=== PATIENT | female | born 1935 | race Two or more races ===

== ENCOUNTER 2018-07-20 14:39 | Inpatient (IN) | payer MEDICARE ==
--- NOTE | 2018-07-20 15:16 | ED ---
General Adult HPI - General Chief complaint: Shortness of Breath Stated complaint: low oxygen Time Seen by Provider: 07/20/18 14:59 Source: patient, family, RN notes reviewed Mode of arrival: ambulatory Limitations: no limitations - History of Present Illness Initial comments: Patient is a pleasant 83-year-old female presenting to the emergency department with dyspnea. Patient was at Dr. Valdovinos's office and oxygen was noticed to be low there. Patient states she did admit to having some difficulty in breathing. Patient states she has felt somewhat short of breath since starting treatment for bone cancer one year ago. Patient states it is been slightly worse over the past couple of weeks. Dyspnea does worsen with talking and sometimes after exertion. No cough. No fever. No chest pain. No history of previous lung problems or similar symptoms. No leg pain or leg swelling. - Related Data Home Medications Medication Instructions Recorded Confirmed Carvedilol [Coreg] 12.5 mg PO BID 11/10/17 07/20/18 Hydroxychloroquine Sulfate 200 mg PO DAILY 11/10/17 07/20/18 [Plaquenil] Lisinopril [Zestril] 20 mg PO BID 11/10/17 07/20/18 Bimatoprost [Lumigan .01% Ophth 1 drop BOTH EYES BID 07/20/18 07/20/18 Soln] Colesevelam [Welchol] 1,875 mg PO BID 07/20/18 07/20/18 Dronabinol [Marinol] 2.5 mg PO BID 07/20/18 07/20/18 Epoetin Luis [Procrit] 40,000 unit PO Q14D 07/20/18 07/20/18 Leflunomide [Arava] 20 mg PO DAILY 07/20/18 07/20/18 Prochlorperazine [Compazine] 10 mg PO TID PRN 07/20/18 07/20/18 fentaNYL 12MCG/HR PATCH [Duragesic 1 patch TRANSDERM Q72H 07/20/18 07/20/18 12MCG/HR] traMADol HCL/ACETAMINOPHEN 1 tab PO Q6H PRN 07/20/18 07/20/18 [Ultracet 37.5-325] Allergies Allergy/AdvReac Type Severity Reaction Status Date / Time clonidine Allergy Unknown Unknown Verified 07/20/18 15:22 cephalexin [From Keflex] Allergy Unknown Verified 07/20/18 15:22 Penicillins Allergy Unknown Verified 07/20/18 15:22 Review of Systems ROS Statement: Those systems with pertinent positive or pertinent negative responses have been documented in the HPI. ROS Other: All systems not noted in ROS Statement are negative. Constitutional: Denies: fever Eyes: Denies: eye pain ENT: Denies: ear pain Respiratory: Reports: dyspnea. Denies: cough Cardiovascular: Denies: chest pain Endocrine: Denies: fatigue Gastrointestinal: Denies: abdominal pain Genitourinary: Denies: dysuria Musculoskeletal: Denies: back pain Skin: Denies: rash Neurological: Denies: weakness Past Medical History Past Medical History: Cancer, Hypertension, Rheumatoid Arthritis (RA) Additional Past Medical History / Comment(s): Moderate kidney failure. Breast cancer - 2010. Bone metastasis History of Any Multi-Drug Resistant Organisms: None Reported Past Surgical History: Tonsillectomy Additional Past Surgical History / Comment(s): Bilateral TKR. Bilateral Hip replacements. Left breast mastectomy. Bilateral cataract extraction with IOL Past Psychological History: No Psychological Hx Reported Smoking Status: Never smoker Past Alcohol Use History: None Reported Past Drug Use History: None Reported General Exam Limitations: no limitations General appearance: alert, in no apparent distress Head exam: Present: atraumatic Eye exam: Present: normal appearance, PERRL ENT exam: Present: normal oropharynx Neck exam: Present: normal inspection Respiratory exam: Present: normal lung sounds bilaterally Cardiovascular Exam: Present: regular rate, normal rhythm GI/Abdominal exam: Present: soft. Absent: tenderness Back exam: Present: other (Kyphotic). Absent: tenderness Neurological exam: Present: alert Psychiatric exam: Present: normal affect, normal mood Skin exam: Present: normal color Course Vital Signs 07/20/18 07/20/18 07/20/18 14:42 15:02 16:13 Temperature 98.4 F Pulse Rate 71 72 Respiratory 18 20 16 Rate Blood Pressure 146/68 170/77 O2 Sat by Pulse 92 L 97 Oximetry - Reevaluation(s) Reevaluation #1: 07/20/18 17:29 Patient will be covered with antibiotics for possible infiltrate. Patient does not meet sepsis criteria. EKG Findings - EKG Comments: EKG Findings:: Normal sinus rhythm 69. IN 204. First 3 AV block. QRS 90. QT 418. QTC 447. Left axis. LVH criteria. Inferior Q waves. Q wave in lead V1. No acute ST change. Medical Decision Making - Medical Decision Making Patient reevaluated and updated. Case discussed in detail with Dr. Saez who does recommend medical admission and he will consult. He does recommend VQ scan and antibiotics and one unit of packed red blood cells. Case also discussed with Dr. qureshi, who will admit. - Lab Data Result diagrams: 07/20/18 15:50 07/20/18 15:50 Lab Results 07/20/18 07/20/18 07/20/18 Range/Units 15:50 15:50 15:50 WBC 4.0 (3.8-10.6) k/uL RBC 2.28 L (3.80-5.40) m/uL Hgb 6.7 L* (11.4-16.0) gm/dL Hct 22.7 L (34.0-46.0) % MCV 99.2 (80.0-100.0) fL MCH 29.4 (25.0-35.0) pg MCHC 29.7 L (31.0-37.0) g/dL RDW 18.2 H (11.5-15.5) % Plt Count 148 L (150-450) k/uL Neutrophils % 70 % Lymphocytes % 13 % Monocytes % 11 % Eosinophils % 4 % Basophils % 1 % Neutrophils # 2.8 (1.3-7.7) k/uL Lymphocytes # 0.5 L (1.0-4.8) k/uL Monocytes # 0.4 (0-1.0) k/uL Eosinophils # 0.1 (0-0.7) k/uL Basophils # 0.0 (0-0.2) k/uL Manual Slide Review Performed Polychromasia Present Hypochromasia Marked Poikilocytosis (manual Present Anisocytosis Slight Macrocytosis Slight PT (9.0-12.0) sec INR (<1.2) APTT (22.0-30.0) sec D-Dimer (<0.60) mg/L FEU Sodium 144 (137-145) mmol/L Potassium 4.8 (3.5-5.1) mmol/L Chloride 111 H (98-107) mmol/L Carbon Dioxide 23 (22-30) mmol/L Anion Gap 10 mmol/L BUN 39 H (7-17) mg/dL Creatinine 1.56 H (0.52-1.04) mg/dL Est GFR (CKD-EPI)AfAm 36 (>60 ml/min/1.73 sqM) Est GFR (CKD-EPI)NonAf 31 (>60 ml/min/1.73 sqM) Glucose 76 (74-99) mg/dL Calcium 9.3 (8.4-10.2) mg/dL Total Bilirubin 0.4 (0.2-1.3) mg/dL AST 25 (14-36) U/L ALT 14 (9-52) U/L Alkaline Phosphatase 47 (38-126) U/L Total Creatine Kinase 120 (30-135) U/L CK-MB (CK-2) 2.3 (0.0-2.4) ng/mL CK-MB (CK-2) Rel Index 1.9 Troponin I 0.019 (0.000-0.034) ng/mL NT-Pro-B Natriuret Pep pg/mL Total Protein 6.3 (6.3-8.2) g/dL Albumin 3.8 (3.5-5.0) g/dL Stool Occult Blood (Negative) 07/20/18 07/20/18 07/20/18 Range/Units 15:50 15:50 16:39 WBC (3.8-10.6) k/uL RBC (3.80-5.40) m/uL Hgb (11.4-16.0) gm/dL Hct (34.0-46.0) % MCV (80.0-100.0) fL MCH (25.0-35.0) pg MCHC (31.0-37.0) g/dL RDW (11.5-15.5) % Plt Count (150-450) k/uL Neutrophils % % Lymphocytes % % Monocytes % % Eosinophils % % Basophils % % Neutrophils # (1.3-7.7) k/uL Lymphocytes # (1.0-4.8) k/uL Monocytes # (0-1.0) k/uL Eosinophils # (0-0.7) k/uL Basophils # (0-0.2) k/uL Manual Slide Review Polychromasia Hypochromasia Poikilocytosis (manual Anisocytosis Macrocytosis PT 10.6 (9.0-12.0) sec INR 1.1 (<1.2) APTT 19.8 L (22.0-30.0) sec D-Dimer 3.01 H (<0.60) mg/L FEU Sodium (137-145) mmol/L Potassium (3.5-5.1) mmol/L Chloride (98-107) mmol/L Carbon Dioxide (22-30) mmol/L Anion Gap mmol/L BUN (7-17) mg/dL Creatinine (0.52-1.04) mg/dL Est GFR (CKD-EPI)AfAm (>60 ml/min/1.73 sqM) Est GFR (CKD-EPI)NonAf (>60 ml/min/1.73 sqM) Glucose (74-99) mg/dL Calcium (8.4-10.2) mg/dL Total Bilirubin (0.2-1.3) mg/dL AST (14-36) U/L ALT (9-52) U/L Alkaline Phosphatase (38-126) U/L Total Creatine Kinase (30-135) U/L CK-MB (CK-2) (0.0-2.4) ng/mL CK-MB (CK-2) Rel Index Troponin I (0.000-0.034) ng/mL NT-Pro-B Natriuret Pep 7330 pg/mL Total Protein (6.3-8.2) g/dL Albumin (3.5-5.0) g/dL Stool Occult Blood Negative (Negative) - Radiology Data Radiology results: image reviewed (Chest x-ray questions underlying metastatic disease. Possible left lower lobe atelectasis versus infiltrate.) Disposition Clinical Impression: Dyspnea, Anemia Disposition: ADMITTED IP TO THIS HOSP Is patient prescribed a controlled substance at d/c from ED?: No Referrals: Ange Messer MD [Primary Care Provider] - 1-2 days Decision Time: 17:29
[2018-07-20 16:16] LABS: Albumin 3.8 g/dL (3.5-5.0); Calcium 9.3 mg/dL (8.4-10.2); Potassium 4.8 mmol/L (3.5-5.1); Total Bilirubin 0.4 mg/dL (0.2-1.3); Total Protein 6.3 g/dL (6.3-8.2)
[2018-07-20 16:18] LABS: Anisocytosis Slight; Basophils % (A) 1 %; Eosinophils # (A) 0.1 k/uL (0-0.7); Eosinophils % (A) 4 %; HCT 22.7 % (34.0-46.0); Hypochromasia Marked; Lymphocytes # (A) 0.5 k/uL (1.0-4.8); Lymphocytes % (A) 13 %; MCH 29.4 pg (25.0-35.0); MCHC 29.7 g/dL (31.0-37.0); MCV 99.2 fL (80.0-100.0); Macrocytosis Slight; Mean Platelet Volume 7.5; Monocytes # (A) 0.4 k/uL (0-1.0); Monocytes % (A) 11 %; Neutrophils # (A) 2.8 k/uL (1.3-7.7); Neutrophils % (A) 70 %; Platelet Count 148 k/uL (150-450); RBC 2.28 m/uL (3.80-5.40); RDW 18.2 % (11.5-15.5)
[2018-07-20 16:21] LABS: HGB 6.7 gm/dL (11.4-16.0)
[2018-07-20 16:26] LABS: INR 1.1 (<1.2); Prothrombin Time 10.6 sec (9.0-12.0)
--- NOTE | 2018-07-20 16:28 | XR ---
EXAMINATION TYPE: XR chest 2V DATE OF EXAM: 07/20/2018 COMPARISON: NONE HISTORY: Difficulty breathing, shortness of breath TECHNIQUE: Frontal and lateral views of the chest are obtained. FINDINGS: There is a kyphosis, increased AP diameter of the chest. Sclerotic foci are present within the proximal humerus, ribs. Arthropathy noted within the shoulders. Heart size may be accentuated by rotation. There is retrocardiac density with obscured left hemidiaphragm, blunting of the left costo phrenic angle. No pneumothorax. Compression deformity noted at the mid thoracic spine with anterior w edging. Bone mineralization somewhat reduced. Fifth rib fracture on the left shows callus formation, minimally displaced posterior left fourth rib fracture also shows callus formation. Suspect some lowe r rib fractures on the right laterally. IMPRESSION: Possible underlying metastatic disease. Rotation may accentuate the heart size. There ma y be left lower lobe atelectasis versus pneumonia and associated effusion, follow-up to resolution to exclude underlying mass.
[2018-07-20 16:33] LABS: Partial Thromboplastin Time 19.8 sec (22.0-30.0)
[2018-07-20 16:34] LABS: D-Dimer 3.01 mg/L FEU (<0.60)
[2018-07-20 16:40] LABS: Creatine Kinase MB 2.3 ng/mL (0.0-2.4); Troponin I 0.019 ng/mL (0.000-0.034)
[2018-07-20 16:53] LABS: Poikilocytosis (M) Present; Polychromasia Present
[2018-07-20] MEDS ORDERED: IPRATROPIUM-ALBUTEROL 3 ML NEB INHALATION PRN (17:30)
[2018-07-20] MEDS ORDERED: PNEUMONIA PROTOCOL UTILIZED 1 EACH MISC PO PRN (17:30)
[2018-07-20] MEDS ORDERED: LEVOFLOXACIN 750MG-D5W PMX 750 MG in DEXTROSE/WATER 1 150ML.BAG IVPB STA (17:30)
[2018-07-20] MEDS: SODIUM CHLORIDE 0.9% 1,000 ML IV SCH (18:03)
[2018-07-20] MEDS ORDERED: NALOXONE 0.4 MG/ML 1 ML VIAL IV PRN (18:46)
--- NOTE | 2018-07-20 18:46 | P.HPIM ---
History of Present Illness H&P Date: 07/20/18 Chief Complaint: Shortness of breath The patient is an 83 yo F with PMH of stage 4 breast ca (dx 8 years ago as stage 3 with subsequent recurrence 1 year ago), currently on Ibrans (palbociclib ) and Xgeva (denosumab), HTN, RA, and CKD 3, presented to the ED from Dr Valdovinos 's (Oncologist) office for SOB and hypoxia. The patient notes that she has been developing gradually worsening SOB on-going since starting the breast cancer therapy in 10/2017 but recently worsening over past few weeks. She notes that her ET has decreased somewhat though she continues to ambulate with walker. She otherwise denied chest pain, LE pain, worsening LE edema (baseline edema chronically of LEs), recent travel, cough, fever, chills, or prolonged immobilization. She further denied melena, hematochezia, headache, blurred vision, dysuria. Review of Systems Pertinent positives and negatives as discussed in HPI, a complete review of systems was performed and all other systems are negative. Past Medical History Past Medical History: Cancer, Hypertension, Rheumatoid Arthritis (RA) Additional Past Medical History / Comment(s): Moderate kidney failure. Breast cancer - 2010. Bone metastasis History of Any Multi-Drug Resistant Organisms: None Reported Past Surgical History: Tonsillectomy Additional Past Surgical History / Comment(s): Bilateral TKR. Bilateral Hip replacements. Left breast mastectomy. Bilateral cataract extraction with IOL Past Psychological History: No Psychological Hx Reported Smoking Status: Never smoker Past Alcohol Use History: None Reported Past Drug Use History: None Reported Medications and Allergies Home Medications Medication Instructions Recorded Confirmed Type Carvedilol [Coreg] 12.5 mg PO BID 11/10/17 07/20/18 History Hydroxychloroquine Sulfate 200 mg PO DAILY 11/10/17 07/20/18 History [Plaquenil] Lisinopril [Zestril] 20 mg PO BID 11/10/17 07/20/18 History Bimatoprost [Lumigan .01% Ophth 1 drop BOTH EYES BID 07/20/18 07/20/18 History Soln] Colesevelam [Welchol] 1,875 mg PO BID 07/20/18 07/20/18 History Dronabinol [Marinol] 2.5 mg PO BID 07/20/18 07/20/18 History Epoetin Luis [Procrit] 40,000 unit PO Q14D 07/20/18 07/20/18 History Leflunomide [Arava] 20 mg PO DAILY 07/20/18 07/20/18 History Prochlorperazine [Compazine] 10 mg PO TID PRN 07/20/18 07/20/18 History fentaNYL 12MCG/HR PATCH [Duragesic 1 patch TRANSDERM Q72H 07/20/18 07/20/18 History 12MCG/HR] traMADol HCL/ACETAMINOPHEN 1 tab PO Q6H PRN 07/20/18 07/20/18 History [Ultracet 37.5-325] Allergies Allergy/AdvReac Type Severity Reaction Status Date / Time clonidine Allergy Unknown Unknown Verified 07/20/18 15:22 cephalexin [From Keflex] Allergy Unknown Verified 07/20/18 15:22 Penicillins Allergy Unknown Verified 07/20/18 15:22 Physical Exam Vitals: Vital Signs Temp Pulse Resp BP Pulse Ox 07/20/18 17:39 76 16 183/81 99 07/20/18 17:09 68 18 141/65 98 07/20/18 16:39 66 16 147/65 98 07/20/18 16:13 72 16 170/77 97 07/20/18 15:02 20 07/20/18 14:42 98.4 F 71 18 146/68 92 L Intake and Output 07/20/18 07/20/18 07/20/18 06:59 14:59 22:59 Other: Weight 51.71 kg General: [non toxic], [no distress], [appears at stated age], [normal weight] Derm: [no unusual rashes/lesions] [echymosis overlying lana extensor hand surfaces], [warm], [dry] Head: [atraumatic], [normocephalic], [symmetric] Eyes: [EOMI], [no lid lag], [anicteric sclera], [pupils equal round reactive to light] ENT: [Nose and ears atraumatic], [no thrush], [no pharyngeal erythema] Neck: [No thyromegaly], [no cervical lymphadenopathy], [trachea midline], [ supple] Mouth: [no lip lesion], [mucus membranes moist] Cardiovascular: [S1S2 reg], [no murmur], [positive posterior tibial pulse bilateral], [no edema], [capillary refill less than 2 seconds] Lungs: [CTA bilateral], [no rhonchi, no rales] , [no accessory muscle use] Abdominal: [soft], [ nontender to palpation], [no guarding], [no appreciable organomegaly], [normal bowel sounds] Ext: [no gross muscle atrophy], [muscle strength 5 out of 5 in all 4 extremities grossly], [lana ulnar deviation at wrists w/ swan neck deformities] Neuro: [ CN II-XI grossly intact], [light touch intact all 4 extremities], [ finger to nose within normal limits], Psych: [Alert], [oriented], [appropriate affect] Results CBC & Chem 7: 07/20/18 15:50 07/20/18 15:50 Labs: Abnormal Lab Results - Last 24 Hours (Table) 07/20/18 07/20/18 07/20/18 Range/Units 15:50 15:50 15:50 RBC 2.28 L (3.80-5.40) m/uL Hgb 6.7 L* (11.4-16.0) gm/dL Hct 22.7 L (34.0-46.0) % MCHC 29.7 L (31.0-37.0) g/dL RDW 18.2 H (11.5-15.5) % Plt Count 148 L (150-450) k/uL Lymphocytes # 0.5 L (1.0-4.8) k/uL APTT 19.8 L (22.0-30.0) sec D-Dimer 3.01 H (<0.60) mg/L FEU Chloride 111 H (98-107) mmol/L BUN 39 H (7-17) mg/dL Creatinine 1.56 H (0.52-1.04) mg/dL Assessment and Plan Plan: Shortness of breath, D-dimer 3.01, LLL possible pneumonia on X-ray, Hgb 6.7 - In light of patient's CKD, will obtain V/Q scan in am - C/w Levaquin for now - Will hold off on AC for now in light of thrombocytopenia and severe anemia - Transfuse 1 U of PRBCs Severe Anemia - Received Procrit as outpt - Will transfuse 1 U Stage 4 breast ca - Will discuss case w/ patient's oncologist -- Dr Valdovinos - Will resume Arava and Xgeva in am CKD stage 3 - Stable for now - Will monitor HTN - Resume home meds: Lisinopril 20 mg po bid, Coreg 12.5 mg bid DVT//GI prophy. - Lovenox - No indication for GI proph The patient is admitted with an anticipated greater than 2 midnight stay for evaluation of shortness of breath CODE STATUS:Full-code Discussed with: Patient, daughter Anticipated discharge date: 07/23/[address]: Home A total of 65 minutes was spent on the care of this complex patient more than 50 % of the time was spent in counseling and care coordination.
[2018-07-20] MEDS: LISINOPRIL 20 MG TAB PO SCH (19:35)
[2018-07-20] MEDS: DRONABINOL 2.5 MG CAP PO SCH (19:35)
[2018-07-20] MEDS: CARVEDILOL 12.5 MG TAB PO SCH (19:35)
[2018-07-20] MEDS: LATANOPROST 0.005% OPHTH DROPS 2.5 ML BTL BOTH EYES SCH (19:35)
--- NOTE | 2018-07-20 19:36 | NM ---
EXAMINATION TYPE: NM pul vent and perfuse DATE OF EXAM: 07/20/2018 COMPARISON: Chest radiographs -18 at 4:06 PM HISTORY: Dyspnea TECHNIQUE: Utilizing inhalation of 68.4 mCi Tc 99m DTPA aerosol and intravenous injection of 5.18 mCi of Tc 99m MAA, ventilation and perfusion images are acquired post injection in multiple projections. FINDINGS: On the right there are a few scattered small mild matched perfusion/ventilation defects, but there ar e no mismatched defects. On the left, there are large matched defects in the left lower lobe region, consistent with the exten sive findings seen on the frontal and lateral chest radiographs of earlier today. There are no defini te mismatched left lung perfusion/ventilation defects. IMPRESSION: Low probability for the diagnosis of pulmonary embolism.
[2018-07-20] MEDS: traMADol-ACETAMINOP 37.5-325MG 1 EACH TAB PO PRN (22:16)
[2018-07-21] MEDS: LISINOPRIL 20 MG TAB PO SCH ×2 (09:00→20:59)
[2018-07-21] MEDS: CARVEDILOL 12.5 MG TAB PO SCH ×2 (09:00→17:23)
[2018-07-21] MEDS: DRONABINOL 2.5 MG CAP PO SCH ×2 (09:00→20:58)
[2018-07-21] MEDS ORDERED: ENOXAPARIN 40 MG/0.4 ML SYRINGE SQ SCH (09:00)
[2018-07-21] MEDS: traMADol-ACETAMINOP 37.5-325MG 1 EACH TAB PO PRN (09:07)
[2018-07-21 10:02] LABS: Albumin 3.4 g/dL (3.5-5.0); Calcium 8.7 mg/dL (8.4-10.2); Potassium 4.6 mmol/L (3.5-5.1); Total Bilirubin 0.4 mg/dL (0.2-1.3); Total Protein 5.8 g/dL (6.3-8.2)
[2018-07-21 10:35] VITALS: BMI 23.8
[2018-07-21 11:15] LABS: Anisocytosis Slight; HCT 31.9 % (34.0-46.0); Hypochromasia Marked; MCH 30.4 pg (25.0-35.0); MCHC 30.5 g/dL (31.0-37.0); MCV 99.5 fL (80.0-100.0); Macrocytosis Slight; Mean Platelet Volume 8.1; Platelet Count 123 k/uL (150-450); Poikilocytosis Slight; RBC 3.21 m/uL (3.80-5.40); RDW 18.5 % (11.5-15.5); WBC 3.9 k/uL (3.8-10.6)
[2018-07-21 11:18] LABS: HGB 9.7 gm/dL (11.4-16.0)
--- NOTE | 2018-07-21 14:23 | P.PN ---
Subjective Progress Note Date: 07/21/18 The patient was seen and examined at the bedside. She notes that her breathing has improved since admission and she denied any episodes of chest pain, diaphoresis, nausea, vomiting, fever, cough, chills, abd pain, nausea, or vomiting. Objective - Vital Signs Vital signs: Vital Signs Temp 98.2 F 07/21/18 13:38 Pulse 74 07/21/18 13:38 Resp 15 07/21/18 13:38 BP 148/71 07/21/18 13:38 Pulse Ox 95 07/21/18 13:38 Intake & Output 07/20/18 07/21/18 07/21/18 18:59 06:59 18:59 Intake Total 460 Balance 460 Weight 51.71 kg 51.71 kg Intake: Intake, IV Titration 150 Amount Levofloxacin 750Mg-D5w 150 Pmx 750 mg In Dextrose/ Water 1 150ml.bag @ 100 mls/hr IVPB ONCE STA Rx#: [id number] Blood Product 310 Rc As-1 Unit 310 [id number] Other: Voiding Method Toilet Toilet # Voids 1 - Exam General: Non-toxic, in no acute distress HEENT: NC/AT, anicteric sclerae, moist conjunctiva, no lid-lag, PERRLA, oropharynx clear, no erythema, exudates Cardiovascular: S1/S2 wnl, no murmurs, rubs, or gallops Lungs: Clear to auscultation, normal respiratory effort, no accessory muscle use Abdominal: Soft, nontender, non-distended, no guarding, rebound, or rigidity, normoactive bowel sounds Skin: Warm, dry, bruising with thin skin overlying both extensor hand surfaces Extremities: ANNETTE wrist ulnar deviation w/ PIP and DIP deformities including swan neck Psychiatric: Alert and oriented to person, place and time, appropriate affect, Intact judgment Neuro: CN II-XII grossly intact, no focal motor deficits - Labs CBC & Chem 7: 07/21/18 09:06 07/21/18 09:06 Labs: Abnormal Lab Results - Last 24 Hours (Table) 07/20/18 07/20/18 07/20/18 Range/Units 15:50 15:50 15:50 RBC 2.28 L (3.80-5.40) m/uL Hgb 6.7 L* (11.4-16.0) gm/dL Hct 22.7 L (34.0-46.0) % MCHC 29.7 L (31.0-37.0) g/dL RDW 18.2 H (11.5-15.5) % Plt Count 148 L (150-450) k/uL Lymphocytes # 0.5 L (1.0-4.8) k/uL APTT 19.8 L (22.0-30.0) sec D-Dimer 3.01 H (<0.60) mg/L FEU Chloride 111 H (98-107) mmol/L BUN 39 H (7-17) mg/dL Creatinine 1.56 H (0.52-1.04) mg/dL Glucose (74-99) mg/dL Total Protein (6.3-8.2) g/dL Albumin (3.5-5.0) g/dL Crossmatch 07/20/18 07/21/18 07/21/18 Range/Units 15:50 09:06 09:06 RBC 3.21 L (3.80-5.40) m/uL Hgb 9.7 L D (11.4-16.0) gm/dL Hct 31.9 L (34.0-46.0) % MCHC 30.5 L (31.0-37.0) g/dL RDW 18.5 H (11.5-15.5) % Plt Count 123 L (150-450) k/uL Lymphocytes # (1.0-4.8) k/uL APTT (22.0-30.0) sec D-Dimer (<0.60) mg/L FEU Chloride 113 H (98-107) mmol/L BUN 33 H (7-17) mg/dL Creatinine 1.40 H (0.52-1.04) mg/dL Glucose 72 L (74-99) mg/dL Total Protein 5.8 L (6.3-8.2) g/dL Albumin 3.4 L (3.5-5.0) g/dL Crossmatch See Detail Assessment and Plan Plan: Shortness of breath, likely secondary to symptomatic anemia, less likely CAP - VQ scan low probability - C/w Levaquin for now - S/p 1 U pRBCs, with higher than expected response Severe Anemia - Improved. Stage 4 breast ca - Oncology consult pending. CKD stage 3 - Stable for now - Will monitor HTN - Resume home meds: Lisinopril 20 mg po bid, Coreg 12.5 mg bid DVT//GI prophy. - Lovenox - No indication for GI proph The patient is admitted with an anticipated greater than 2 midnight stay for evaluation of shortness of breath CODE STATUS:Full-code Discussed with: Patient, daughter Anticipated discharge date: 07/23/[address]: Home A total of 65 minutes was spent on the care of this complex patient more than 50 % of the time was spent in counseling and care coordination.
--- NOTE | 2018-07-21 14:40 | XR ---
EXAMINATION TYPE: XR chest 2V DATE OF EXAM: 07/21/2018 COMPARISON: 07/20/2018 HISTORY: 83-year-old female follow-up pneumonia TECHNIQUE: Frontal and lateral views FINDINGS: Heart remains enlarged. Leftward patient rotation altering the normal cardiac and mediastinal contour s. Worsening bilateral airspace opacities especially in the mid and lower lungs, left greater than ri ght. Persistent [id number] left pleural effusion. End stage degenerative change at both should ers. IMPRESSION: 1. Interval worsening. Correlate for worsening multifocal pneumonia or worsening pulmonary edema. 2. Moderate left-sided pleural effusion with adjacent atelectasis and/or consolidation persists. 3. End-stage bilateral glenohumeral joint osteoarthrosis.
--- NOTE | 2018-07-21 16:05 | P.CONS ---
History of Present Illness - Reason for Consult Consult date: 07/21/18 Metastatic Breast Cancer Requesting physician: River Toussaint - Chief Complaint Shortness of Breath, Anemia - History of Present Illness Ms. Gardner is a very pleasant 83 year old female well known to Dr. Valdovinos for treatment of her extensive breast carcinoma with metastasis to eight axillary lymph nodes. The cancer is weakly ER positive, CT negative and [id number] negative. She was treated with a left mastectomy and six cycles of adjuvant Taxotere and Cytoxan chemotherapy and radiation therapy to the chest wall. She is currently on further adjuvant hormonal therapy with Femara, which is being tolerated well. The patient is receiving Procrit management every 2-4 weeks for anemia related to chronic renal insufficiency. She has known Rheumatoid Arthritis, especially in her right shoulder and right hip. Pt received Rituxan at [facility] for her RA. She has been following us for her metastatic Breast Cancer since 2011. Most recently her disease has remained stable on her current regimen of Faslodex and Xgeva. She continues to be seen in office every 2 weeks for procrit injections. She was seen by me on 07/20/18 for her procrit, which she received for a hemoglobin 8.3. She was unually short of breath at the time of presentation, requiring oxygen to keep her oxygen saturations above 92%. Therefore she was advised to be further evaluated in the emergency department. In General she is very active and has a good performance status for her age, with the exception of utilizing a walker from time to time related to her arthritis. She does complain of left shoulder and arm pain, this was new over past few weeks and with hx of breast cancer resonable to evalyuate for lytic lesions Review of Systems A 14 point review of systems was assessed and completed and all negative except HPI. Past Medical History Past Medical History: Cancer, Hyperlipidemia, Hypertension, Renal Disease, Rheumatoid Arthritis (RA) Additional Past Medical History / Comment(s): "ckd stage 3", past hx high cholesterol did take rx for few years none now, scoliosis, glaucoma, macular degeneration. lt Breast cancer - 2010-had sx, 35 radiation tx and "4"chemo tx. past basal and squamous skin ca face/neck and small spot of melanoma rt leg. Bone metastasis dx -2017 History of Any Multi-Drug Resistant Organisms: None Reported Past Surgical History: Tonsillectomy Additional Past Surgical History / Comment(s): Bilateral TKR. Bilateral Hip replacements. Left breast mastectomy. Bilateral cataract extraction with IOL. 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 Past Anesthesia/Blood Transfusion Reactions: No Reported Reaction Smoking Status: Never smoker - Past Family History Mother Family Medical History: Hypertension Additional Family Medical History / Comment(s): aaa Father Family Medical History: Myocardial Infarction ([place]) Brother(s) Family Medical History: Myocardial Infarction ([place]) Additional Family Medical History / Comment(s): at age 36 from [place] Medications and Allergies Home Medications Medication Instructions Recorded Confirmed Type Carvedilol [Coreg] 12.5 mg PO BID 11/10/17 07/20/18 History Hydroxychloroquine Sulfate 200 mg PO DAILY 11/10/17 07/20/18 History [Plaquenil] Lisinopril [Zestril] 20 mg PO BID 11/10/17 07/20/18 History Bimatoprost [Lumigan .01% Ophth 1 drop BOTH EYES BID 07/20/18 07/20/18 History Soln] Colesevelam [Welchol] 1,875 mg PO BID 07/20/18 07/20/18 History Dronabinol [Marinol] 2.5 mg PO BID 07/20/18 07/20/18 History Epoetin Luis [Procrit] 40,000 unit PO Q14D 07/20/18 07/20/18 History Leflunomide [Arava] 20 mg PO DAILY 07/20/18 07/20/18 History Prochlorperazine [Compazine] 10 mg PO TID PRN 07/20/18 07/20/18 History fentaNYL 12MCG/HR PATCH [Duragesic 1 patch TRANSDERM Q72H 07/20/18 07/20/18 History 12MCG/HR] traMADol HCL/ACETAMINOPHEN 1 tab PO Q6H PRN 07/20/18 07/20/18 History [Ultracet 37.5-325] amLODIPine [Norvasc] 10 mg PO DAILY 07/21/18 07/21/18 History Allergies Allergy/AdvReac Type Severity Reaction Status Date / Time clonidine Allergy Unknown Unknown Verified 07/20/18 15:22 cephalexin [From Keflex] Allergy Unknown Verified 07/20/18 15:22 Penicillins Allergy Unknown Verified 07/20/18 15:22 Physical Exam Vitals: Vital Signs Temp Pulse Pulse Pulse Resp BP BP 07/21/18 13:38 98.2 F 74 15 148/71 07/21/18 10:55 16 07/21/18 08:32 98.2 F 77 14 158/76 07/21/18 05:29 97.7 F 76 16 127/66 07/21/18 01:37 97.7 F 72 16 147/69 07/20/18 23:28 97.8 F 64 18 135/62 07/20/18 22:58 97.6 F 65 16 168/72 07/20/18 22:48 97.6 F 67 16 150/66 07/20/18 20:35 64 108/59 07/20/18 19:15 98.0 F 84 16 185/84 07/20/18 17:39 76 16 183/81 07/20/18 17:09 68 18 141/65 07/20/18 16:39 66 16 147/65 07/20/18 16:13 72 16 170/77 Pulse Ox 07/21/18 13:38 95 07/21/18 10:55 07/21/18 08:32 94 L 07/21/18 05:29 94 L 07/21/18 01:37 99 07/20/18 23:28 99 07/20/18 22:58 100 07/20/18 22:48 93 L 07/20/18 20:35 07/20/18 19:15 97 07/20/18 17:39 99 07/20/18 17:09 98 07/20/18 16:39 98 07/20/18 16:13 97 Intake and Output 07/21/18 07/21/18 07/21/18 06:59 14:59 22:59 Intake Total 310 160 Balance 310 160 Intake: Intake, IV Titration 160 Amount Sodium Chloride 0.9% 1, 160 000 ml @ 20 mls/hr IV . Q24H [facility] Rx#:[id number] Blood Product 310 Rc As-1 Unit 310 [id number] Other: Voiding Method Toilet Toilet # Voids 1 Weight 51.71 kg - Constitutional General appearance: cooperative, no acute distress - EENT Eyes: EOMI, PERRLA, dentition normal ENT: hard of hearing, NA/AT, normal oropharynx - Neck Supple, Trachea Midline - Respiratory Respiratory: bilateral: diminished, rhonchi (Bibasilar ) - Cardiovascular Rhythm: irregularly irregular - Gastrointestinal General gastrointestinal: normal bowel sounds, soft - Integumentary Back Curvature, - Neurologic Neurologic: CNII-XII intact - Musculoskeletal Musculoskeletal: generalized weakness, strength equal bilaterally - Psychiatric Psychiatric: A&O x's 3, appropriate affect, intact judgment & insight Results CBC & Chem 7: 07/21/18 09:06 07/21/18 09:06 Labs: Abnormal Lab Results - Last 24 Hours (Table) 07/20/18 07/20/18 07/20/18 Range/Units 15:50 15:50 15:50 RBC 2.28 L (3.80-5.40) m/uL Hgb 6.7 L* (11.4-16.0) gm/dL Hct 22.7 L (34.0-46.0) % MCHC 29.7 L (31.0-37.0) g/dL RDW 18.2 H (11.5-15.5) % Plt Count 148 L (150-450) k/uL Lymphocytes # 0.5 L (1.0-4.8) k/uL APTT 19.8 L (22.0-30.0) sec D-Dimer 3.01 H (<0.60) mg/L FEU Chloride 111 H (98-107) mmol/L BUN 39 H (7-17) mg/dL Creatinine 1.56 H (0.52-1.04) mg/dL Glucose (74-99) mg/dL Total Protein (6.3-8.2) g/dL Albumin (3.5-5.0) g/dL Crossmatch 07/20/18 07/21/18 07/21/18 Range/Units 15:50 09:06 09:06 RBC 3.21 L (3.80-5.40) m/uL Hgb 9.7 L D (11.4-16.0) gm/dL Hct 31.9 L (34.0-46.0) % MCHC 30.5 L (31.0-37.0) g/dL RDW 18.5 H (11.5-15.5) % Plt Count 123 L (150-450) k/uL Lymphocytes # (1.0-4.8) k/uL APTT (22.0-30.0) sec D-Dimer (<0.60) mg/L FEU Chloride 113 H (98-107) mmol/L BUN 33 H (7-17) mg/dL Creatinine 1.40 H (0.52-1.04) mg/dL Glucose 72 L (74-99) mg/dL Total Protein 5.8 L (6.3-8.2) g/dL Albumin 3.4 L (3.5-5.0) g/dL Crossmatch See Detail Chest x-ray: report reviewed CT scan - chest: report reviewed Assessment and Plan Plan: Assessment and Recommendations: 1. Metastatic Breast Cancer - Bone: - Currently on Treatment per Dr. Valdovinos with Faslodex and Xgeva 2. Normocytic Anemia - Multifactoral - Related to Chronic Kidney Disease Stage 3 - Procrit 40K every 2 weeks - Last 07/20/18, Hgb 8.3 3. Acute Hypoxic Respiratory Failure: - VQ scan Reviewed, Low probability Pulmonary Embolism - Possible cardiovascular etiology, BNP elevated - Cardiology following echocardio scheduled 4. Rheumatoid Arthritis: - Managed by [employer], on PLaquenil 5. Left Shoulder and Left arm/Elbow Pain - - Plain Films Ordered 6. Chronic Illness Myopathy: - PT Eval and Treat - Up in chair all meals, should be able to sustain activity without oxygen saturation decrease - Patient lives alone. High risk for muscle atrophy
--- NOTE | 2018-07-21 16:28 | ECHOF ---
Referral Reason:SOB MEASUREMENTS -------- HEIGHT: 147.3 cm WEIGHT: 51.7 kg BP: 127/66 RVIDd: 2.6 cm (< 3.3) IVSd: 1.1 cm (0.6 - 1.1) LVIDd: 3.9 cm (3.9 - 5.3) LVPWd: 1.0 cm (0.6 - 1.1) IVSs: 1.5 cm LVIDs: 3.0 cm LVPWs: 1.6 cm LA Diam: 3.4 cm (2.7 - 3.8) LAESV Index (A-L): 43.41 ml/m Ao Diam: 2.8 cm (2.0 - 3.7) AV Cusp: 1.9 cm (1.5 - 2.6) MV EXCURSION: 17.961 mm (> 18.000) MV EF SLOPE: 103 mm/s (70 - 150) EPSS: 0.7 cm MV E Jluis: 0.79 m/s MV DecT: 216 ms MV A Jluis: 1.21 m/s MV E/A Ratio: 0.66 RAP: 5.00 mmHg RVSP: 55.28 mmHg FINDINGS -------- Sinus rhythm. This was a technically good study. The left ventricular size is normal. There is borderline concentric left ventricular hypertrophy. Overall left ventricular systolic function is normal with, an EF between 55 - 60 %. Basal inferior LV wall motion is hypokinetic. The right ventricle is normal in size. The right ventricular systolic function is mildly impaired. LA is severely dilated >40 ml/m2 The right atrium is normal in size. The aortic valve is trileaflet, and appears structurally normal. No aortic stenosis or regurgitation. The mitral valve leaflets are mildly thickened. Mild mitral annular calcification present. Mild m itral regurgitation is present. [id number]-[id number] tricuspid regurgitation present. There is severe pulmonary hypertension. The rig ht ventricular systolic pressure, as measured by Doppler, is 55.28mmHg. There is no pulmonic regurgitation present. The aortic root size is normal. Normal inferior vena cava with normal inspiratory collapse consistent with estimated right atrial pre ssure of 5 mmHg. The inferior vena cava is mildly dilated. There is no pericardial effusion. CONCLUSIONS -------- 1. Sinus rhythm. 2. This was a technically good study. 3. The left ventricular size is normal. 4. There is borderline concentric left ventricular hypertrophy. 5. Overall left ventricular systolic function is normal with, an EF between 55 - 60 %. 6. Basal inferior LV wall motion is hypokinetic. 7. The right ventricular systolic function is mildly impaired. 8. LA is severely dilated >40 ml/m2 9. The aortic valve is trileaflet, and appears structurally normal. No aortic stenosis or regurgitati on. 10. The mitral valve leaflets are mildly thickened. 11. Mild mitral annular calcification present. 12. Mild mitral regurgitation is present. 13. Cfgz-if-cfbmjopp tricuspid regurgitation present. 14. There is severe pulmonary hypertension. 15. There is no pulmonic regurgitation present. 16. The aortic root size is normal. 17. Normal inferior vena cava with normal inspiratory collapse consistent with estimated right atrial pressure of 5 mmHg. 18. The inferior vena cava is mildly dilated. 19. There is no pericardial effusion. ASSEMBLY PERSON: Norma Willis RDCS
[2018-07-21] MEDS: amLODIPine 10 MG TAB PO SCH (17:23)
[2018-07-21] MEDS ORDERED: LEVOFLOXACIN 750 MG TAB PO SCH (18:00)
[2018-07-21] MEDS: LATANOPROST 0.005% OPHTH DROPS 2.5 ML BTL BOTH EYES SCH (20:58)
[2018-07-21] MEDS: SODIUM CHLORIDE 0.9% 1,000 ML IV SCH (21:01)
--- NOTE | 2018-07-21 21:15 | XR ---
EXAMINATION TYPE: XR scapula LT DATE OF EXAM: 07/21/2018 COMPARISON: NONE HISTORY: Shoulder pain TECHNIQUE: 2 views FINDINGS: Scapula appears intact. There is some osteopenia. There is narrowing of glenohumeral joint space. IMPRESSION: No acute abnormality of the left scapula. There is noted probable left pleural effusion a nd old fractures left posterior fourth and fifth ribs.
--- NOTE | 2018-07-21 21:20 | XR ---
EXAMINATION TYPE: XR elbow limited LT DATE OF EXAM: 07/21/2018 COMPARISON: NONE HISTORY: Elbow pain TECHNIQUE: 2 views FINDINGS: There is soft tissue swelling around the elbow joint. I see no fracture nor dislocation. Th ere is spurring olecranon process. There is some radiolucency over the proximal ulna at the elbow dharmesh nt that raises the possibility of a destructive lesion. IMPRESSION: Significant posterior swelling over the proximal ulna. No fracture seen. Possible destruc tive lesion involving the olecranon process that articulates with the distal humerus. Oblique lateral views would be helpful to confirm or exclude this finding since the overlying soft tissue swelling i s present.
--- NOTE | 2018-07-21 21:22 | XR ---
EXAMINATION TYPE: XR clavicle LT DATE OF EXAM: 07/21/2018 COMPARISON: NONE HISTORY: Pain TECHNIQUE: 2 views FINDINGS: I see no fracture nor dislocation. There is moderate osteoarthritis of the shoulder joint. Clavicle appears intact. IMPRESSION: Negative left clavicle exam.
[2018-07-22] MEDS: traMADol-ACETAMINOP 37.5-325MG 1 EACH TAB PO PRN ×2 (00:16→11:09)
[2018-07-22 07:43] LABS: Anisocytosis Slight; Basophils % (A) 1 %; Eosinophils # (A) 0.1 k/uL (0-0.7); Eosinophils % (A) 4 %; HCT 31.1 % (34.0-46.0); HGB 9.4 gm/dL (11.4-16.0); Hypochromasia Marked; Lymphocytes # (A) 0.4 k/uL (1.0-4.8); Lymphocytes % (A) 12 %; MCH 30.1 pg (25.0-35.0); MCHC 30.1 g/dL (31.0-37.0); Macrocytosis Slight; Mean Platelet Volume 7.8; Monocytes # (A) 0.4 k/uL (0-1.0); Monocytes % (A) 10 %; Neutrophils # (A) 2.5 k/uL (1.3-7.7); Neutrophils % (A) 70 %; Platelet Count 129 k/uL (150-450); Poikilocytosis Slight; RBC 3.11 m/uL (3.80-5.40); RDW 18.4 % (11.5-15.5); WBC 3.6 k/uL (3.8-10.6)
[2018-07-22] MEDS: LISINOPRIL 20 MG TAB PO SCH ×2 (09:24→21:38)
[2018-07-22] MEDS: HYDROXYCHLOROQUINE SULFATE 200 MG TAB PO SCH (09:24)
[2018-07-22] MEDS: CARVEDILOL 12.5 MG TAB PO SCH ×2 (09:25→18:15)
[2018-07-22] MEDS: ENOXAPARIN 30 MG/0.3 ML SYRINGE SQ SCH (09:25)
[2018-07-22] MEDS: amLODIPine 10 MG TAB PO SCH (09:25)
[2018-07-22] MEDS: DRONABINOL 2.5 MG CAP PO SCH ×2 (09:25→21:37)
[2018-07-22] MEDS: LEFLUNOMIDE 20 MG TAB PO SCH (09:37)
--- NOTE | 2018-07-22 15:48 | P.CNPUL ---
History of Present Illness Consult date: 07/22/18 Reason for consult: dyspnea, hypoxemia Chief complaint: Hypoxemia, shortness of breath History of present illness: This is a 83-year-old white female patient of Dr. Messer, who presented to the ER department on 07/20/2018 for evaluation of worsening dyspnea, and hypoxemia. Patient was a Dr. Valdovinos's office and was noted to have low oxygen saturations. She has had worsening dyspnea since October of this year. Denied any chest pain, denied cough, denied any chest congestion or phlegm production, denied any recent episodes of pneumonia. Denies any previous history of chronic lung problems. Denies any peripheral edema. Patient follows with Dr. Valdovinos for treatment of her extensive breast carcinoma with metastasis to the axillary lymph nodes. She status post left mastectomy and 6 cycles of adjuvant chemotherapy with Taxotere and Cytoxan and radiation therapy to the chest wall. She is on further adjuvant hormonal therapy, which she is tolerating well. Patient noted to be increasingly more short of breath requiring oxygen. Chest x -ray emergency department showed retrocardiac density with obscured left hemidiaphragm, small left pleural effusion, possibility of underlying metastatic disease. No fever or chills. Hemodynamically stable, non- tachycardic. Lab work showed WBC of 4.0, hemoglobin 6.7, d-dimer was elevated at 3.01, electrolytes were essentially unremarkable, chloride was slightly elevated at 111, UN is 39, creatinine is 1.56, proBNP was elevated at 7330, and troponin was 0.019, LFTs are within normal limits. EKG showed normal sinus rhythm with evidence of inferior and anterior infarct of undetermined age. Echocardiogram showed preserved left ventricular systolic function with an EF between 55-60%, mild MR, mild to moderate TR, severe pulmonary hypertension with pressure of 55.2 mmHg. follow up chest x-ray on 07/21/2018 showed interval worsening of multifocal bilateral airspace disease especially in the mid and lower lungs, and persistence of small left pleural effusion. Patient has underlying history of hypertension, hyperlipidemia, chronic kidney disease stage III, rheumatoid arthritis, kyphoscoliosis, glaucoma, macular degeneration. Today we seen the patient in evaluation for hypoxemic respiratory failure Review of Systems All systems: negative Constitutional: Denies chills, Denies fever Eyes: denies blurred vision, denies pain Ears, nose, mouth and throat: Denies headache, Denies sore throat Cardiovascular: Denies chest pain, Denies shortness of breath Respiratory: Reports dyspnea, Denies cough Gastrointestinal: Denies abdominal pain, Denies diarrhea, Denies nausea, Denies vomiting Genitourinary: Denies dysuria, Denies hematuria Musculoskeletal: Denies myalgias Integumentary: Denies pruritus, Denies rash Neurological: Denies numbness, Denies weakness Psychiatric: Denies anxiety, Denies depression Endocrine: Denies fatigue, Denies weight change Past Medical History Past Medical History: Cancer, Hyperlipidemia, Hypertension, Renal Disease, Rheumatoid Arthritis (RA) Additional Past Medical History / Comment(s): "ckd stage 3", past hx high cholesterol did take rx for few years none now, scoliosis, glaucoma, macular degeneration. lt Breast cancer - 2010-had sx, 35 radiation tx and "4"chemo tx. past basal and squamous skin ca face/neck and small spot of melanoma rt leg. Bone metastasis dx History of Any Multi-Drug Resistant Organisms: None Reported Past Surgical History: Tonsillectomy Additional Past Surgical History / Comment(s): Bilateral TKR. Bilateral Hip replacements. Left breast mastectomy. Bilateral cataract extraction with IOL. 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 Past Anesthesia/Blood Transfusion Reactions: No Reported Reaction Smoking Status: Never smoker - Past Family History Mother Family Medical History: Hypertension Additional Family Medical History / Comment(s): aaa Father Family Medical History: Myocardial Infarction ([place]) Brother(s) Family Medical History: Myocardial Infarction ([place]) Additional Family Medical History / Comment(s): at age 36 from [place] Medications and Allergies Home Medications Medication Instructions Recorded Confirmed Type Carvedilol [Coreg] 12.5 mg PO BID 11/10/17 07/20/18 History Hydroxychloroquine Sulfate 200 mg PO DAILY 11/10/17 07/20/18 History [Plaquenil] Lisinopril [Zestril] 20 mg PO BID 11/10/17 07/20/18 History Bimatoprost [Lumigan .01% Ophth 1 drop BOTH EYES BID 07/20/18 07/20/18 History Soln] Colesevelam [Welchol] 1,875 mg PO BID 07/20/18 07/20/18 History Dronabinol [Marinol] 2.5 mg PO BID 07/20/18 07/20/18 History Epoetin Luis [Procrit] 40,000 unit PO Q14D 07/20/18 07/20/18 History Leflunomide [Arava] 20 mg PO DAILY 07/20/18 07/20/18 History Prochlorperazine [Compazine] 10 mg PO TID PRN 07/20/18 07/20/18 History fentaNYL 12MCG/HR PATCH [Duragesic 1 patch TRANSDERM Q72H 07/20/18 07/20/18 History 12MCG/HR] traMADol HCL/ACETAMINOPHEN 1 tab PO Q6H PRN 07/20/18 07/20/18 History [Ultracet 37.5-325] amLODIPine [Norvasc] 10 mg PO DAILY 07/21/18 07/21/18 History Allergies Allergy/AdvReac Type Severity Reaction Status Date / Time clonidine Allergy Unknown Unknown Verified 07/20/18 15:22 cephalexin [From Keflex] Allergy Unknown Verified 07/20/18 15:22 Penicillins Allergy Unknown Verified 07/20/18 15:22 Physical Exam Vitals: Vital Signs Temp Pulse Resp BP Pulse Ox 07/22/18 13:15 97 F L 67 16 92/57 95 07/22/18 05:00 97.9 F 78 16 125/65 93 L 07/21/18 21:05 98 F 68 16 121/76 96 Intake and Output 07/21/18 07/22/18 07/22/18 22:59 06:59 14:59 Intake Total 80 160 Balance 80 160 Intake: Intake, IV Titration 80 160 Amount Sodium Chloride 0.9% 1, 80 160 000 ml @ 20 mls/hr IV . Q24H [facility] Rx#:[id number] Other: Voiding Method Toilet Toilet # Voids 2 1 2 GENERAL EXAM: Alert, pleasant, 83-year-old white female, frail looking, but comfortable in no apparent distress. HEAD: Normocephalic/atraumatic. EYES: Normal reaction of pupils, equal size. Conjunctiva pink, sclera white. NOSE: Clear with pink turbinates. THROAT: No erythema or exudates. NECK: No masses, no JVD, no thyroid enlargement, no adenopathy. CHEST: No chest wall deformity. Symmetrical expansion. LUNGS: Diminished breath sounds, with a few scattered rhonchi CVS: Regular rate and rhythm, normal S1 and S2, no gallops, no murmurs, no rubs ABDOMEN: Soft, nontender. No hepatosplenomegaly, normal bowel sounds, no guarding or rigidity. EXTREMITIES: No clubbing, no edema, no cyanosis, 2+ pulses and upper and lower extremities. MUSCULOSKELETAL: Muscle strength and tone normal. Kyphoscoliosis spine noted. SPINE: No scoliosis or deformity SKIN: No rashes CENTRAL NERVOUS SYSTEM: Alert and oriented -3. No focal deficits, tone is normal in all 4 extremities. PSYCHIATRIC: Alert and oriented -3. Appropriate affect. Intact judgment and insight. Results - Laboratory Findings CBC and BMP: 07/22/18 06:55 07/21/18 09:06 PT/INR, D-dimer PT 10.6 sec (9.0-12.0) 07/20/18 15:50 INR 1.1 (<1.2) 07/20/18 15:50 D-Dimer 3.01 mg/L FEU (<0.60) H 07/20/18 15:50 Abnormal lab findings: Abnormal Labs 07/20/18 07/20/18 07/20/18 15:50 15:50 15:50 WBC RBC 2.28 L Hgb 6.7 L* Hct 22.7 L MCHC 29.7 L RDW 18.2 H Plt Count 148 L Lymphocytes # 0.5 L APTT 19.8 L D-Dimer 3.01 H Chloride 111 H BUN 39 H Creatinine 1.56 H Glucose Total Protein Albumin Crossmatch 07/20/18 07/21/18 07/21/18 15:50 09:06 09:06 WBC RBC 3.21 L Hgb 9.7 L D Hct 31.9 L MCHC 30.5 L RDW 18.5 H Plt Count 123 L Lymphocytes # APTT D-Dimer Chloride 113 H BUN 33 H Creatinine 1.40 H Glucose 72 L Total Protein 5.8 L Albumin 3.4 L Crossmatch See Detail 07/22/18 06:55 WBC 3.6 L RBC 3.11 L Hgb 9.4 L Hct 31.1 L MCHC 30.1 L RDW 18.4 H Plt Count 129 L Lymphocytes # 0.4 L APTT D-Dimer Chloride BUN Creatinine Glucose Total Protein Albumin Crossmatch - Diagnostic Findings Chest x-ray: report reviewed, image reviewed Additional studies: EKG reviewed, VQ scan results reviewed echocardiogram results reviewed Assessment and Plan Plan: Assessment: #1. Acute hypoxemic respiratory failure was is under investigation, possibly including acute exacerbation of congestive heart failure, or infection #2. Metastatic breast cancer, with metastasis to the bone, currently on Faslodex and X [place], follows with Dr. Valdovinos #3. Elevated d-dimer, VQ scan was low probability for pulmonary embolism #4. Pulmonary hypertension #5. Chronic kidney disease, stage III #6. Rheumatoid arthritis #7. Chronic anemia #8. Hypertension, hyperlipidemia #9. Glaucoma, macular degeneration #10. Kyphoscoliosis #11. Lifetime nonsmoker Plan: We'll obtain CT chest without contrast, continue with current medical treatment , empiric antibiotics. No fever, no chills, blood cultures remain negative. Make further recommendations based on findings of the CT chest. Continue with nebulized bronchodilators. GI and DVT prophylaxis. I performed a history & physical examination of the patient and discussed their management with my nurse practitioner, Queenie Florence. I reviewed the nurse practitioner's note and agree with the documented findings and plan of care. Lung sounds are positive for diminished breath sounds, Rhonchi. The findings and the impression was discussed with the patient. I attest to the documentation by the nurse practitioner. Time with Patient: Greater than 30
--- NOTE | 2018-07-22 16:11 | P.PN ---
Subjective Progress Note Date: 07/22/18 Principal diagnosis: Dyspnea, Hypoxia Still requiring oxygen for increased breathing this am. Objective - Vital Signs Vital signs: Vital Signs Temp 97 F L 07/22/18 13:15 Pulse 67 07/22/18 13:15 Resp 16 07/22/18 13:15 BP 92/57 07/22/18 13:15 Pulse Ox 95 07/22/18 13:15 Intake & Output 07/21/18 07/22/18 07/22/18 18:59 06:59 18:59 Intake Total 160 80 160 Balance 160 80 160 Weight 51.71 kg Intake: Intake, IV Titration 160 80 160 Amount Sodium Chloride 0.9% 1, 160 80 160 000 ml @ 20 mls/hr IV . Q24H [facility] Rx#:[id number] Other: Voiding Method Toilet Toilet Toilet # Voids 2 1 2 - Exam Constitutional General appearance: cooperative, no acute distress - EENT Eyes: EOMI, PERRLA, dentition normal ENT: hard of hearing, NA/AT, normal oropharynx - Neck Supple, Trachea Midline - Respiratory Respiratory: bilateral: diminished, rhonchi (Bibasilar ) - Cardiovascular Rhythm: irregularly irregular - Gastrointestinal General gastrointestinal: normal bowel sounds, soft - Integumentary Back Curvature, - Neurologic Neurologic: CNII-XII intact - Musculoskeletal Musculoskeletal: generalized weakness, strength equal bilaterally - Psychiatric Psychiatric: A&O x's 3, appropriate affect, intact judgment & insight - Labs CBC & Chem 7: 07/22/18 06:55 07/21/18 09:06 Labs: Abnormal Lab Results - Last 24 Hours (Table) 07/22/18 Range/Units 06:55 WBC 3.6 L (3.8-10.6) k/uL RBC 3.11 L (3.80-5.40) m/uL Hgb 9.4 L (11.4-16.0) gm/dL Hct 31.1 L (34.0-46.0) % MCHC 30.1 L (31.0-37.0) g/dL RDW 18.4 H (11.5-15.5) % Plt Count 129 L (150-450) k/uL Lymphocytes # 0.4 L (1.0-4.8) k/uL Microbiology - Last 24 Hours (Table) 07/20/18 18:05 Blood Culture - Preliminary Blood No Growth after 24 hours 07/20/18 15:50 Blood Culture - Preliminary Blood No Growth after 24 hours Assessment and Plan Plan: Assessment and Recommendations: 1. Metastatic Breast Cancer - Bone: - Currently on Treatment per Dr. Valdovinos with Faslodex and Xgeva 2. Normocytic Anemia - Multifactoral - Related to Chronic Kidney Disease Stage 3 - Procrit 40K every 2 weeks - Last 07/20/18, Hgb stable today 3. Acute Hypoxic Respiratory Failure: - VQ scan Reviewed, Low probability Pulmonary Embolism - Possible cardiovascular etiology, BNP elevated - Cardiology following echocardio scheduled - Evaluated by Pulmonary today and agree with plan for CT without Contrast. Will await these results. 4. Rheumatoid Arthritis: - Managed by Director [employer], on PLaquenil 5. Left Shoulder and Left arm/Elbow Pain - - Plain Films Ordered 6. Chronic Illness Myopathy: - PT Eval and Treat - Up in chair all meals, should be able to sustain activity without oxygen saturation decrease - Patient lives alone. High risk for muscle atrophy Physician Attest: I have completed the full history and physical of this patient and agree with above dictation by Jovana Simmons NP. Dictated as a scribe
--- NOTE | 2018-07-22 16:14 | CT ---
EXAMINATION TYPE: CT chest wo con DATE OF EXAM: 07/22/2018 COMPARISON: Chest x-ray 07/21/2018 HISTORY: Breast cancer with bone mets, shortness of breath, fluid. CT DLP: 178.2 mGycm. Automated Exposure Control for Dose Reduction was Utilized. TECHNIQUE: CT scan of the thorax is performed without IV contrast. FINDINGS: Lack of contrast could compromise sensitivity. LUNGS: The lungs are remarkable for bilateral lower lobe airspace disease, there are pleural effusion s, possible compressive atelectasis versus pneumonia. The tracheobronchial tree is patent. MEDIASTINUM: Lack of IV contrast is noted to limit evaluation for mediastinal and especially hilar ad enopathy. There are no definitive greater than 1 cm hilar or mediastinal lymph nodes. No pericardia l effusion is seen. The heart is enlarged. There are coronary artery calcifications present. OTHER: Gallstones are present. Scattered calcifications within the liver and spleen compatible with o ld granulomatous disease. The bones vertebral bodies show diffuse moth-eaten appearance. Marked arthr opathy noted in the bilateral shoulders. Multiple old rib fractures are present. Multilevel spondylos is. There is a kyphosis. Compression deformity noted at approximately T5. Thyroid is enlarged, there is likely underlying goiter. IMPRESSION: Abnormal bone density, underlying metastatic disease should be considered, consider multi ple myeloma. Bilateral pleural effusions and associated atelectasis, correlate to exclude pneumonia. Coronary artery disease, cardiomegaly. Noncontrast exam. Cholelithiasis. Additional findings above.
--- NOTE | 2018-07-22 16:18 | P.PN ---
Subjective Progress Note Date: 07/22/18 The patient was seen and examined at the bedside. She notes that her breathing is the same as yesterday though she denied any episodes of chest pain, diaphoresis, nausea, vomiting, fever, cough, chills, abd pain, nausea, or vomiting. Objective - Vital Signs Vital signs: Vital Signs Temp 97 F L 07/22/18 13:15 Pulse 67 07/22/18 13:15 Resp 16 07/22/18 13:15 BP 92/57 07/22/18 13:15 Pulse Ox 95 07/22/18 13:15 Intake & Output 07/21/18 07/22/18 07/22/18 18:59 06:59 18:59 Intake Total 160 80 160 Balance 160 80 160 Weight 51.71 kg Intake: Intake, IV Titration 160 80 160 Amount Sodium Chloride 0.9% 1, 160 80 160 000 ml @ 20 mls/hr IV . Q24H [facility] Rx#:[id number] Other: Voiding Method Toilet Toilet Toilet # Voids 2 1 2 - Exam General: Non-toxic, in no acute distress HEENT: NC/AT, anicteric sclerae, moist conjunctiva, no lid-lag, PERRLA, oropharynx clear, no erythema, exudates Cardiovascular: S1/S2 wnl, no murmurs, rubs, or gallops Lungs: Clear to auscultation, normal respiratory effort, no accessory muscle use Abdominal: Soft, nontender, non-distended, no guarding, rebound, or rigidity, normoactive bowel sounds Skin: Warm, dry, bruising with thin skin overlying both extensor hand surfaces Extremities: ANNETTE wrist ulnar deviation w/ PIP and DIP deformities including swan neck, kyphosis and scoliosis of spine Psychiatric: Alert and oriented to person, place and time, appropriate affect, Intact judgment Neuro: CN II-XII grossly intact, no focal motor deficits - Labs CBC & Chem 7: 07/22/18 06:55 07/21/18 09:06 Labs: Abnormal Lab Results - Last 24 Hours (Table) 07/22/18 Range/Units 06:55 WBC 3.6 L (3.8-10.6) k/uL RBC 3.11 L (3.80-5.40) m/uL Hgb 9.4 L (11.4-16.0) gm/dL Hct 31.1 L (34.0-46.0) % MCHC 30.1 L (31.0-37.0) g/dL RDW 18.4 H (11.5-15.5) % Plt Count 129 L (150-450) k/uL Lymphocytes # 0.4 L (1.0-4.8) k/uL Microbiology - Last 24 Hours (Table) 07/20/18 18:05 Blood Culture - Preliminary Blood No Growth after 24 hours 07/20/18 15:50 Blood Culture - Preliminary Blood No Growth after 24 hours Assessment and Plan Plan: Shortness of breath, secondary to anemia vs metastatic disease to the lungs - VQ scan low probability - Echo showing severe pulm htn - C/w Levaquin for now - S/p 1 U pRBCs, with higher than expected response - Pulm recs apprecaited. Will f/u CT Chest w/o contrast. Severe Anemia - Improved. Stage 4 breast ca - Oncology recs appreciated CKD stage 3 - Stable for now - Will monitor HTN - Resume home meds: Lisinopril 20 mg po bid, Coreg 12.5 mg bid DVT//GI prophy. - Lovenox - No indication for GI proph The patient is admitted with an anticipated greater than 2 midnight stay for evaluation of shortness of breath CODE STATUS:Full-code Discussed with: Patient, daughter Anticipated discharge date: 07/23/[address]: Home A total of 65 minutes was spent on the care of this complex patient more than 50 % of the time was spent in counseling and care coordination.
[2018-07-22] MEDS: SODIUM CHLORIDE 0.9% 1,000 ML IV SCH (17:33)
[2018-07-22] MEDS ORDERED: LEVOFLOXACIN 750 MG TAB PO SCH (18:00)
[2018-07-22] MEDS: LATANOPROST 0.005% OPHTH DROPS 2.5 ML BTL BOTH EYES SCH (21:39)
[2018-07-23] MEDS ORDERED: LIDOCAINE 1% INJ 10MG/ML (20 ML MDV) SQ ONE (08:29)
[2018-07-23] MEDS: DRONABINOL 2.5 MG CAP PO SCH ×2 (09:11→18:24)
[2018-07-23] MEDS: ENOXAPARIN 30 MG/0.3 ML SYRINGE SQ SCH (10:07)
[2018-07-23] MEDS: CARVEDILOL 12.5 MG TAB PO SCH ×2 (10:07→18:24)
[2018-07-23] MEDS: amLODIPine 10 MG TAB PO SCH (10:07)
[2018-07-23] MEDS: LEFLUNOMIDE 20 MG TAB PO SCH (10:10)
[2018-07-23] MEDS: HYDROXYCHLOROQUINE SULFATE 200 MG TAB PO SCH (10:10)
[2018-07-23] MEDS: LISINOPRIL 20 MG TAB PO SCH (10:10)
[2018-07-23 10:12] VITALS: RESP 16
--- NOTE | 2018-07-23 11:02 | P.PN ---
Subjective Progress Note Date: 07/23/18 Principal diagnosis: Dyspnea, Hypoxia Appears patient to have metastatic lesion which is likely causing the pain in left arm. She also has some effusion and planning thoracentesis today. If cytology returns positive this could represent progression of disease. Objective - Vital Signs Vital signs: Vital Signs Temp 97.8 F 07/23/18 05:00 Pulse 84 07/23/18 10:11 Resp 16 07/23/18 10:11 BP 117/65 07/23/18 10:11 Pulse Ox 99 07/23/18 10:11 Intake & Output 07/22/18 07/23/18 07/23/18 18:59 06:59 18:59 Intake Total 160 100 Balance 160 100 Intake: Intake, IV Titration 160 100 Amount Sodium Chloride 0.9% 1, 160 100 000 ml @ 20 mls/hr IV . Q24H [facility] Rx#:[id number] Other: Voiding Method Toilet Toilet # Voids 2 1 - Exam Constitutional General appearance: cooperative, no acute distress - EENT Eyes: EOMI, PERRLA, dentition normal ENT: hard of hearing, NA/AT, normal oropharynx - Neck Supple, Trachea Midline - Respiratory Respiratory: bilateral: diminished, rhonchi (Bibasilar ) - Cardiovascular Rhythm: irregularly irregular - Gastrointestinal General gastrointestinal: normal bowel sounds, soft - Integumentary Back Curvature, - Neurologic Neurologic: CNII-XII intact - Musculoskeletal Musculoskeletal: generalized weakness, strength equal bilaterally - Psychiatric Psychiatric: A&O x's 3, appropriate affect, intact judgment & insight - Labs CBC & Chem 7: 07/22/18 06:55 07/21/18 09:06 Labs: Microbiology - Last 24 Hours (Table) 07/20/18 18:05 Blood Culture - Preliminary Blood No Growth after 48 hours 07/20/18 15:50 Blood Culture - Preliminary Blood No Growth after 48 hours Assessment and Plan Plan: Assessment and Recommendations: 1. Metastatic Breast Cancer - Bone: - Currently on Treatment per Dr. Valdovinos with Faslodex and Xgeva 2. Normocytic Anemia - Multifactoral - Related to Chronic Kidney Disease Stage 3 - Procrit 40K every 2 weeks - Last 07/20/18, Hgb stable today 3. Acute Hypoxic Respiratory Failure: - VQ scan Reviewed, Low probability Pulmonary Embolism - Possible cardiovascular etiology, BNP elevated - Cardiology following echocardio scheduled - Evaluated by Pulmonary today and agree with plan for CT without Contrast. Will await these results. 4. Rheumatoid Arthritis: - Managed by Curriculum Writer, on PLaquenil 5. Left Shoulder and Left arm/Elbow Pain - - Plain Films Ordered 6. Chronic Illness Myopathy: - PT Eval and Treat - Up in chair all meals, should be able to sustain activity without oxygen saturation decrease - Patient lives alone. High risk for muscle atrophy 7. Left arm Metastatic Bone lesion: - COnsult radiation Oncology for Palliative Radiation as causing pain 8. Pleural Effusion: - Planning THoracentesis, if Cytology is positive then likely progressive disease 9. Patient discussed the options of hospice care today with medical team. She understands goal of care is palliative and quality. If Cytolofy returns positive then this is resonable option, if there is not evidence of progression then continueing on current regiment with Faslodex, XGEVA and Procrit under the heading of palliative is appropriate.
[2018-07-23] MEDS: traMADol-ACETAMINOP 37.5-325MG 1 EACH TAB PO PRN (11:55)
[2018-07-23 12:06] VITALS: BP 100/57; PULSE 78; TEMP 97
--- NOTE | 2018-07-23 12:56 | XR ---
EXAMINATION TYPE: XR chest 1V portable DATE OF EXAM: 07/23/2018 COMPARISON: 07/21/2018 HISTORY: Shortness of breath TECHNIQUE: Single frontal view of the chest is obtained. FINDINGS: Arthropathy of the shoulders. Deformities of the ribs are seen similar to May been the bas is of metastases. Abnormal appearance to the proximal right humerus also may be metastatic. There is bilateral consolidation and pleural effusion. Heart is prominent and there is atherosclerotic change aorta. No pneumothorax. More localized consolidation medial aspect right upper lobe IMPRESSION: 1. Bilateral infiltrate and pleural effusion likely superimposed on a background of COPD. Correlate f or pneumonia versus mild central venous congestion. 2. Probable diffuse bony metastases. 3. More localized area of consolidation medial aspect right upper lobe.
--- NOTE | 2018-07-23 13:26 | P.PN ---
Subjective Progress Note Date: 07/23/18 This is a 83-year-old white female patient of Dr. Messer, who presented to the ER department on 07/20/2018 for evaluation of worsening dyspnea, and hypoxemia. Patient was a Dr. Valdovinos's office and was noted to have low oxygen saturations. She has had worsening dyspnea since October of this year. Denied any chest pain, denied cough, denied any chest congestion or phlegm production, denied any recent episodes of pneumonia. Denies any previous history of chronic lung problems. Denies any peripheral edema. Patient follows with Dr. Valdovinos for treatment of her extensive breast carcinoma with metastasis to the axillary lymph nodes. She status post left mastectomy and 6 cycles of adjuvant chemotherapy with Taxotere and Cytoxan and radiation therapy to the chest wall. She is on further adjuvant hormonal therapy, which she is tolerating well. Patient noted to be increasingly more short of breath requiring oxygen. Chest x -ray emergency department showed retrocardiac density with obscured left hemidiaphragm, small left pleural effusion, possibility of underlying metastatic disease. No fever or chills. Hemodynamically stable, non- tachycardic. Lab work showed WBC of 4.0, hemoglobin 6.7, d-dimer was elevated at 3.01, electrolytes were essentially unremarkable, chloride was slightly elevated at 111, UN is 39, creatinine is 1.56, proBNP was elevated at 7330, and troponin was 0.019, LFTs are within normal limits. EKG showed normal sinus rhythm with evidence of inferior and anterior infarct of undetermined age. Echocardiogram showed preserved left ventricular systolic function with an EF between 55-60%, mild MR, mild to moderate TR, severe pulmonary hypertension with pressure of 55.2 mmHg. follow up chest x-ray on 07/21/2018 showed interval worsening of multifocal bilateral airspace disease especially in the mid and lower lungs, and persistence of small left pleural effusion. Patient has underlying history of hypertension, hyperlipidemia, chronic kidney disease stage III, rheumatoid arthritis, kyphoscoliosis, glaucoma, macular degeneration. Today we seen the patient in evaluation for hypoxemic respiratory failure On 07/23/2008 units seeing this patient for a follow-up. CAT scan of the chest was reviewed. The patient has severe kyphoscoliosis of the chest. There is also bilateral lower lobe airspace disease in the pleural effusion and compressive atelectasis in the lung bases. There are gallstones. Scattered calcification within the liver and spleen compatible with old granuloma. The bones of the vertebral bodies showed diffuse moth eaten appearance and there is marked arthropathy involving the both shoulders and multiple old rib fractures present. Compression fractures in level of the T5. Based on all this, we decided to proceed with a thoracentesis. A total of 500 mL of pleural fluid was aspirated from the left lung without any complication. The patient tolerated the procedure well. No active shortness of breath postprocedure. She has made a decision to proceed with hospice care. Objective - Vital Signs Vital signs: Vital Signs Temp 97 F L 07/23/18 12:05 Pulse 78 07/23/18 12:05 Resp 16 07/23/18 12:05 BP 100/57 07/23/18 12:05 Pulse Ox 95 07/23/18 12:05 Intake & Output 07/22/18 07/23/18 07/23/18 18:59 06:59 18:59 Intake Total 160 100 Balance 160 100 Weight 51.71 kg Intake: Intake, IV Titration 160 100 Amount Sodium Chloride 0.9% 1, 160 100 000 ml @ 20 mls/hr IV . Q24H [facility] Rx#:[id number] Other: Voiding Method Toilet Toilet Toilet # Voids 2 1 - Exam Constitutional General appearance: cooperative, no acute distress, she is cachectic and thin and frail - EENT Eyes: EOMI, PERRLA, dentition normal ENT: hard of hearing, NA/AT, normal oropharynx - Neck Supple, Trachea Midline - Respiratory Respiratory: bilateral: diminished, rhonchi (Bibasilar ), severe kyphoscoliosis of the chest with diminished breath sound bilaterally most on the left lung base and dullness to percussion. - Cardiovascular Rhythm: irregularly irregular - Gastrointestinal General gastrointestinal: normal bowel sounds, soft - Integumentary Back Curvature, - Neurologic Neurologic: CNII-XII intact - Musculoskeletal Musculoskeletal: generalized weakness, strength equal bilaterally - Psychiatric Psychiatric: A&O x's 3, appropriate affect, intact judgment & insight - Labs CBC & Chem 7: 07/22/18 06:55 07/21/18 09:06 Labs: Microbiology - Last 24 Hours (Table) 07/20/18 18:05 Blood Culture - Preliminary Blood No Growth after 48 hours 10/02/18 15:50 Blood Culture - Preliminary Blood No Growth after 48 hours Assessment and Plan Plan: Assessment 1 large left-sided pleural effusion with small right-sided pleural effusion. A diagnostic and therapeutic thoracentesis of the left lung was done and total of 500 mL of pleural fluid was evacuated from the pleural space. Pleural fluid cytology is pending. 2 metastatic breast cancer maintained on a combination of Fosamax and Xgeva 3 severe kyphoscoliosis of the chest 4 rheumatoid arthritis 5 shortness of breath secondary to bilateral pleural effusion and the patient in acute hypoxic respiratory failure 6 skeletal metastases involving the left shoulder and arm 7 chronic kidney disease stage III 8 chronic anemia 9 hypertension 10 hyperlipidemia 11 glaucoma 12 macular degeneration Plan Thoracentesis was completed successfully. No complications following the procedure. The fluid will be sent for analysis and cytologic evaluation. Patient has made her choices and she is going to proceed with hospice care. We' ll sign off the case for now. Discharge per medicine.
[2018-07-23 13:44] LABS: Total Protein 5.7 g/dL (6.3-8.2)
--- NOTE | 2018-07-23 14:22 | P.PN ---
Progress Note - Text Progress Note Date: 07/23/18 Advance Care Planning Discussed with the patient in detail regarding her medical condition and the multiple disease processes including Stage IV breast ca w/ mets to the bone and now lytic lesion in L arm with pain and swelling. The patient expressed her wishes to not be resuscitated in the event of a cardiac arrest and to not be placed on a ventilator. Furthermore, she expressed that she has lived a long, happy, and fruitful life and doesn't wish to undergo any aggressive treatment including chemotherapy treatment and would like for her care to focus on comfort and pain-control. Patient was subsequently made DNR/DNI. [id number] time w/ patient: 30 minutes
--- NOTE | 2018-07-23 14:58 | P.DS ---
Providers Date of admission: 07/20/18 17:30 Expected date of discharge: 07/23/18 Attending physician: Martina Hernández MD Consults: 07/20/18 17:30 Consult Physician Stat Consulting Provider: Gamaliel Rao Consult Reason/Comments: Oncological care Do you want consulting provider notified?: Already Contacted 07/22/18 07:21 Consult Physician Urgent Consulting Provider: Evie Plata Consult Reason/Comments: SOB, Pulm HTN, stage 4 breast ca to lungs Do you want consulting provider notified?: Yes 07/23/18 08:51 Consult Physician Urgent Consulting Provider: Xavier Rosa Consult Reason/Comments: Breast ca w/ metastatic lesion to L arm w/ pain and swelling Do you want consulting provider notified?: Yes Primary care physician: [facility] Course: The 83 yo F with PMH of Stage IV Breast Ca w/ mets to the bone, HTN, RA, CKD 3, presented to the ED for hypoxia and SOB, sent from the Oncologist's office. The patient noted that her SOB had gradually worsened over the past 6 months but she had otherwise denied any chest pain, LE pain, LE swelling, recent travel, cough, fever, chills, or immobilizations. The patient was found to have Hgb of 6.7 and was admitted w/ SOB secondary to severe anemia vs suspected PNA vs PE. She was started on IV Abxs and D-dimer was elevated for which a V/Q scan was performed and was negative for PE. She was given 1 U of pRBCs with good response. While inpatient, the patient c/o L arm pain and swelling and was found to have a lytic lesion on x-ray of the L olecranon process, likely metastatic breast lesion. Oncology was consulted and recommended thoracentesis of pleural effusion on CXR. Discussed with the patient regarding her goals of care who strongly expressed her wish to be DNR/DNI and for her care to be focused on comfort and pain-control. Hospice family meeting was arranged, after which the patient decided to be discharged home w/ home-hospice and to forego chemotherapy for breast cancer even if thoracentesis cytology shows malignant cells, indicating a progression of disease. The patient is presently stable and ready for discharge to home. Physical Examination General: Awake, alert, in no acute distress HEENT: NC/AT, anicteric sclerae, moist conjunctiva, no lid-lag, PERRLA, oropharynx clear, no erythema, exudates Cardiovascular: S1/S2 wnl, no murmurs, rubs, or gallops Lungs: Clear to auscultation, normal respiratory effort, no accessory muscle use Abdominal: Soft, nontender, non-distended, no guarding, rebound, or rigidity, normoactive bowel sounds Skin: Warm, dry, w/ bruising and thin skin of hands annette Extremities: ANNETTE ulnar deviations and hand small joint deformities, kyphosis, scoliosis, L elbow and mid shaft tenderness on palpation, mild swelling noted Psychiatric: Alert and oriented to person, place and time, appropriate affect, Intact judgment Neuro: CN II-XI grossly intact, sensation to light touch grossly present throughout, no focal sensory deficits Discharge diagnosis: Stage IV breast ca w/ mets to bones, Shortness of breath likely secondary to anemia vs pulmonary HTN in setting of suspected metastatic disease of lung, Severe anemia of chronic disease, CKD stage 3, HTN A total of 70 minutes of time were spent preparing this complex discharge summary. Patient Condition at Discharge: Stable Plan - Discharge Summary Discharge Rx Participant: No New Discharge Prescriptions: Continue Lisinopril [Zestril] 20 mg PO BID Hydroxychloroquine Sulfate [Plaquenil] 200 mg PO DAILY Carvedilol [Coreg*] 12.5 mg PO BID Bimatoprost [Lumigan .01% Ophth Soln] 1 drop BOTH EYES BID Epoetin Luis [Procrit] 40,000 unit PO Q14D Leflunomide [Arava] 20 mg PO DAILY Prochlorperazine [Compazine] 10 mg PO TID PRN PRN Reason: Nausea And Vomiting Dronabinol [Marinol] 2.5 mg PO BID Colesevelam [Welchol] 1,875 mg PO BID amLODIPine [Norvasc] 10 mg PO DAILY fentaNYL 12MCG/HR PATCH [Duragesic 12MCG/HR] 1 patch TRANSDERM Q72H #10 patch traMADol HCL/ACETAMINOPHEN [Ultracet 37.5-325] 1 tab PO Q6H PRN #60 tablet PRN Reason: Pain Discharge Medication List Carvedilol [Coreg*] 12.5 mg PO BID 11/10/17 [History] Hydroxychloroquine Sulfate [Plaquenil] 200 mg PO DAILY 11/10/17 [History] Lisinopril [Zestril] 20 mg PO BID 11/10/17 [History] Bimatoprost [Lumigan .01% Ophth Soln] 1 drop BOTH EYES BID 07/20/18 [History] Colesevelam [Welchol] 1,875 mg PO BID 07/20/18 [History] Dronabinol [Marinol] 2.5 mg PO BID 07/20/18 [History] Epoetin Luis [Procrit] 40,000 unit PO Q14D 07/20/18 [History] Leflunomide [Arava] 20 mg PO DAILY 07/20/18 [History] Prochlorperazine [Compazine] 10 mg PO TID PRN 07/20/18 [History] amLODIPine [Norvasc] 10 mg PO DAILY 07/21/18 [History] fentaNYL 12MCG/HR PATCH [Duragesic 12MCG/HR] 1 patch TRANSDERM Q72H #10 patch [Rx] traMADol HCL/ACETAMINOPHEN [Ultracet 37.5-325] 1 tab PO Q6H PRN #60 tablet 07/23 [Rx] Follow up Appointment(s)/Referral(s): Ange Messer MD [Primary Care Provider] - 1-2 days Discharge Disposition: HOME WITH HOSPICE
--- NOTE | 2018-07-23 15:05 | PCN ---
PROCEDURE NOTE PREOPERATIVE DIAGNOSIS: Left pleural effusion. POSTOPERATIVE DIAGNOSIS: Left pleural effusion. A time-out was completed verifying correct patient, procedure, site, positioning , and implant (s) or special equipment if applicable. Ultrasound guidance was not used and appropriate fluid pocket was identified and marked. Patient was positioned, prepped and draped in usual sterile fashion. Lidocaine was used to anesthetize the area. A Thoracentesis catheter was introduced into the pleural space and fluid was removed. Blood loss was none. A chest x-ray was ordered to evaluate for pneumothorax. Total Fluid Removed: 500 mL Color of Fluid: Dark color. No bedside complications or bleeding. No pneumothorax based on the followup chest x- ray. No complications. MMODL / IJN: [id number] /
[2018-07-23 16:33] LABS: CA27.29 Breast Ca Marker 34.2 U/mL (0.0-38.5)
[2018-07-23] MEDS: SODIUM CHLORIDE 0.9% 1,000 ML IV SCH (18:24)
--- NOTE | 2018-07-26 08:59 | CONS ---
CONSULTATION DATE OF CONSULTATION: 07/23/2018 REASON FOR CONSULTATION: Breast cancer, metastatic with symptomatic bony pain. HISTORY OF PRESENT ILLNESS: This is an 83-year-old female patient who was diagnosed with carcinoma originating from the left breast diagnosed in 2009. At that time, she had locally advanced cancer and was treated with left mastectomy, axillary node dissection followed by chemotherapy and radiation therapy. The patient reported doing well with treatment until 2016 when she was diagnosed with interval metastasis particularly involving bones. Over the past several months, the patient has been treated for her bone metastasis in the supervision of Dr. Valdovinos. Her treatment regimen has included Faslodex and monthly Xgeva. The patient is also being followed by nurse practitioner, Jovana Simmons. The patient was admitted July 20, 2018 regarding left upper extremity pain and increasing dyspnea on exertion. The chest x-ray from 07/20/2018 did show possibility of underlying metastasis as there were sclerotic foci present in the proximal humerus and ribs. Other findings showed a 5th rib fracture on the left with callus formation. There also suspect of lower rib fractures on the right. A pulmonary perfusion test was performed on 07/20/2018. The findings showed a low probability for the diagnosis of pulmonary embolism. CT scan of the chest was performed on 07/22/2018. The findings were compared to a chest x-ray from July 21. The impression was consistent with underlying metastasis. There were bilateral lower lobe air space disease, pleural effusions and possibly compressive atelectasis versus pneumonia. Other findings showed coronary artery disease. Plain films of the left clavicle and elbow from 2017, did demonstrate a posterior swelling over the proximal ulnar. There was no fracture, however, there was a possible destructive lesion involving the olecranon process. The patient has been admitted and is receiving best supportive care. Her best supportive care includes pain management during her hospital course. She does report persistent pain over the past several weeks. Particularly involving the left arm despite narcotic pain medication. The patient has been seen by hospice this afternoon and is electing to enroll in hospice. In addition, the patient does have symptomatic pain involving the left arm and Radiation Oncology was consulted for inpatient palliative radiation therapy. PAST MEDICAL HISTORY: As per HPI. Hypertension, hyperlipidemia, chronic kidney disease stage 3. Rheumatoid arthritis, hyperkyphosis. Glaucoma and macular degeneration. Basal cell and squamous cell carcinoma involving the skin of the face and neck. History of possible melanoma right leg. PAST SURGICAL HISTORY: Past surgical history as per HPI. SOCIAL HISTORY: Negative for tobacco, alcohol. FAMILY HISTORY: Positive for heart disease in father and brother. REVIEW OF SYSTEMS: Constitutional: Positive for fatigue. Negative for severe weight loss, fevers, chills. HEENT: Positive for shoulder pain. Negative for odynophagia, dysphagia, neck masses. RESPIRATORY: Per HPI. Cardiovascular: Positive dyspnea on exertion as per HPI. Gastrointestinal: Negative for nausea, vomiting, incontinence, severe abdominal pain. Genitourinary: Negative for dysuria, obstructive uropathy, hematuria and incontinence. Neurologic: Negative for seizure activity, loss of consciousness or altered mentation. Positive for generalized weakness. Extremities as per HPI. MEDICATIONS: 1. Albuterol/ipratropium. 2. Amlodipine. 3. Carvedilol. 4. Dronabinol. 5. Enoxaparin. 6. Fentanyl. 7. Hydroxychloroquine. 8. Latanoprost. 9. Leflunomide. 10.Levofloxacin. 11.Lisinopril. 12.Naloxone. PHYSICAL EXAM: Well-developed, well-nourished, elderly female patient sitting comfortably in a chair. No acute distress. Performance status is good to fair. ECOG score is 3-4 okay. Temperature 97.8, pulse 89, respiration 18, blood pressure 122/66, O2 saturation is 96% on oxygen. HEENT: Shows no scleral icterus. There are no oral cavity mucosal lesions. The neck is without palpable lymphadenopathy. CHEST: Clear to auscultation. There are no audible wheezes. Heart is regular rate and rhythm. ABDOMEN: Soft , nontender. There is no organomegaly or masses. Extremities shows palpable tenderness along the left arm, particularly in the left elbow and humerus region. Palpation of the spine shows mild tenderness along the upper spine. Extremities shows no edema. Neurologic exam: She is alert and oriented times three. Speech is fluent. Gait not assessed. Strength is 4/5 and symmetric. Sensation is intact. ASSESSMENT: An 83-year-old female patient with an invasive carcinoma of left breast origin diagnosed in 2009 and treated with left mastectomy, axillary node dissection, adjuvant chemotherapy and adjuvant radiation therapy. Over the past several years. The patient has been doing well until 2018 when she was diagnosed with metastasis particularly involving bone over the past several months. She has been treated under the care of Dr. Valdovinos with systemic therapy including Faslodex, Xgeva. At the current time, patient has clinical progression of her disease, particularly involving the multiple bony areas. Patient has declining performance status. She does have symptomatic pain involving the left arm despite narcotic analgesics. CT imaging and x-rays does show a lytic lesion in the left humerus and olecranon process. Overall performance status is fair. ECOG score is 4. The patient also has met with hospice and is considering enrolling in hospice as well. RECOMMENDATION: I had a lengthy discussion with the patient and her daughter and son-in-law regarding her current medical management and cancer diagnosis. I discussed palliative radiation therapy to the left arm for palliation of pain. The patient can have inpatient radiation therapy for one treatment. I discussed the risks, benefits, closely side effects of radiation therapy, which include limited to skin irritation, redness , and soreness. Informed consent was obtained and patient will have radiation treatment as an inpatient. She will receive 1 treatment for 8 sewell in 1 fraction to the left arm. I also discussed the case with nurse practitioner, Jovana Simmons. Thank you for this consultation. MMODL / IJN: [id number] / MOHAN
== END 2018-07-23 18:57 | disposition hospice, home (50) | DRG 597 ==
LOC: EC 14:39 → 5ONC 17:30
PROVIDERS: ADMIT Internal Medicine; ATTEND Internal Medicine
PROC: 30233N1 Transfusion of Nonautologous Red Blood Cells into Peripheral Vein, Percutaneous Approach (ICD-10-PCS; 2018-07-20)
PROC: 0W9B3ZZ Drainage of Left Pleural Cavity, Percutaneous Approach (ICD-10-PCS; principal; 2018-07-23)
DX: C50.912 Malignant neoplasm of unspecified site of left female breast (principal); J96.01 Acute respiratory failure with hypoxia; S22.32XA Fracture of one rib, left side, initial encounter for closed fracture; C77.3 Secondary and unspecified malignant neoplasm of axilla and upper limb lymph nodes; C79.51 Secondary malignant neoplasm of bone; J91.0 Malignant pleural effusion; J98.11 Atelectasis; G72.81 Critical illness myopathy; D63.1 Anemia in chronic kidney disease; E78.5 Hyperlipidemia, unspecified; H35.30 Unspecified macular degeneration; H40.9 Unspecified glaucoma; I12.9 Hypertensive chronic kidney disease with stage 1 through stage 4 chronic kidney disease, or unspecified chronic kidney disease; I25.10 Atherosclerotic heart disease of native coronary artery without angina pectoris; I27.20 Pulmonary hypertension, unspecified; K80.20 Calculus of gallbladder without cholecystitis without obstruction; M06.9 Rheumatoid arthritis, unspecified; M19.90 Unspecified osteoarthritis, unspecified site; M41.9 Scoliosis, unspecified; N18.3 Chronic kidney disease, stage 3 (moderate); R79.1 Abnormal coagulation profile; Z17.0 Estrogen receptor positive status [ER+]; Z66 Do not resuscitate; Z79.899 Other long term (current) drug therapy; Z82.49 Family history of ischemic heart disease and other diseases of the circulatory system; Z85.820 Personal history of malignant melanoma of skin; Z90.12 Acquired absence of left breast and nipple; Z96.643 Presence of artificial hip joint, bilateral; Z96.653 Presence of artificial knee joint, bilateral; Z98.42 Cataract extraction status, left eye; Z98.41 Cataract extraction status, right eye; Z96.1 Presence of intraocular lens; Z88.1 Allergy status to other antibiotic agents; Z88.0 Allergy status to penicillin; Z60.2 Problems related to living alone
CPT/HCPCS: 36415; 71045; 71046; 71250; 77290; 77307; 77334; 77412; 78582; 80053; 82272; 82550; 82553; 83615; 83880; 84155; 84484; 85025; 85027; 85379; 85610; 85730; 86300; 86850; 86900; 86901; 86920; 87040; 88108; 88305; 88341; 88342; 93005; 93306; 96365; 99285